=== PATIENT | female | born 1985 | race Two or more races ===

== ENCOUNTER 2021-10-18 09:20 | Outpatient (CLI) | payer OTHER | END 2021-10-18 10:15 | disposition home or self-care (01) | LOC: PRENATAL 09:20 | PROVIDERS: ATTEND Obstetrics & Gynecology Maternal & Fetal Medicine | DX: O34.11 Maternal care for benign tumor of corpus uteri, first trimester (principal); O36.80X1 Pregnancy with inconclusive fetal viability, fetus 1; O09.511 Supervision of elderly primigravida, first trimester; Z36.89 Encounter for other specified antenatal screening; Z3A.14 14 weeks gestation of pregnancy ==

== ENCOUNTER 2021-12-08 08:04 | Outpatient (CLI) | payer OTHER | END 2021-12-08 09:10 | disposition home or self-care (01) | LOC: PRENATAL 08:04 | PROVIDERS: ATTEND Obstetrics & Gynecology Maternal & Fetal Medicine | DX: O35.0XX0 Maternal care for (suspected) central nervous system malformation in fetus, not applicable or unspecified (principal); O35.3XX0 Maternal care for (suspected) damage to fetus from viral disease in mother, not applicable or unspecified; O09.519 Supervision of elderly primigravida, unspecified trimester ==

== ENCOUNTER 2022-01-31 04:52 | Outpatient (CLI) | payer OTHER ==
[2022-01-31] MEDS ORDERED: PRENATAL TABLE1 EAC1 PO (05:08)
[2022-01-31] MEDS ORDERED: CHILDREN'S ASPI81 MG PO (05:08)
[2022-01-31] MEDS ORDERED: TYLENOL EXTRA500 MG PO (05:09)
== END 2022-01-31 13:08 | disposition home or self-care (01) ==
LOC: OBS/DEL 04:52 → PRENATAL 03-03 09:00
PROVIDERS: ATTEND Obstetrics & Gynecology
DX: O26.893 Other specified pregnancy related conditions, third trimester (principal); Z3A.28 28 weeks gestation of pregnancy; R10.11 Right upper quadrant pain

== ENCOUNTER 2022-03-03 09:13 | Outpatient (CLI) | payer OTHER ==
[~2022-03-03 09:13] MED LIST: CHILDREN'S ASPI81 MG PO; PRENATAL TABLE1 EAC1 PO; TYLENOL EXTRA500 MG PO
== END 2022-03-03 10:15 | disposition home or self-care (01) ==
LOC: PRENATAL 09:13
PROVIDERS: ATTEND Obstetrics & Gynecology Maternal & Fetal Medicine
DX: O35.0XX0 Maternal care for (suspected) central nervous system malformation in fetus, not applicable or unspecified (principal); O26.849 Uterine size-date discrepancy, unspecified trimester; O09.519 Supervision of elderly primigravida, unspecified trimester; O34.10 Maternal care for benign tumor of corpus uteri, unspecified trimester; Z3A.32 32 weeks gestation of pregnancy

== ENCOUNTER 2022-04-10 14:00 | Inpatient (IN) | payer OTHER ==
[~2022-04-10] VITALS: Ht 162.6 cm; Wt 83.0 kg
== END 2022-04-15 18:54 | disposition home or self-care (01) | DRG 805 ==
LOC: LDR 04-13 10:12 → OB/GYN 04-14 01:45
PROVIDERS: ADMIT Obstetrics & Gynecology; ATTEND Obstetrics & Gynecology
PROC: 10E0XZZ Delivery of Products of Conception, External Approach (ICD-10-PCS; principal; 2022-04-13)
PROC: 0W8NXZZ Division of Female Perineum, External Approach (ICD-10-PCS; 2022-04-13)
PROC: 4A1HX4Z Monitoring of Products of Conception, Cardiac Electrical Activity, External Approach (ICD-10-PCS; 2022-04-13)
DX: O98.52 Other viral diseases complicating childbirth (principal); U07.1 COVID-19; Z37.0 Single live birth; Z3A.38 38 weeks gestation of pregnancy; Z20.822 Contact with and (suspected) exposure to COVID-19

== ENCOUNTER 2024-09-16 11:34 | Emergency (ER) | payer OTHER ==
[~2024-09-16] VITALS: Ht 162.6 cm; Wt 70.3 kg
[2024-09-16 12:57] VITALS: BP 105/70; O2SAT 100
[2024-09-16 15:22] LABS: HEMATOCRIT 40.7 % (36.0-45.00); HEMOGLOBIN 13.8 g/dL (12.0-15.00); MEAN CELL VOLUME 89.4 fL (80.00-100.00); MEAN CORPUSCULAR HEMOGLOBIN 30.4 pg (27.00-32.0); PLATELET COUNT 195 K/uL (150-450); RED BLOOD COUNT 4.55 M/uL (4.00-6.00); RED CELL DISTRIBUTION WIDTH 13.1 % (11.5-14.5)
[2024-09-16 15:25] LABS: PH,URINE 5.5 (5.0-8.0); URINE APPEARANCE Cloudy; URINE BILIRRUBIN Negative (NEGATIVE); URINE BLOOD Large; URINE COLOR Yellow; URINE GLUCOSE Negative (NEGATIVE); URINE KETONE Negative (NEGATIVE); URINE LEUKOCYTE Moderate; URINE NITRATE Negative; URINE PROTEIN Negative (NEGATIVE)
[2024-09-16 15:29] LABS: CALCIUM 9.1 mg/dL (8.5-10.1); CREATININE SERUM 0.65 mg/dL (0.55-1.02); GFR 102.01; POTASSIUM 3.73 mEq/L (3.5-5.1)
[2024-09-16 15:29] LABS: URINE BACTERIA 3694.3 uL (0.0-1933); URINE RBC 30.9 uL (0.0-20.8); URINE WBC 140.2 uL (0.0-23.2)
[2024-09-16 15:51] LABS: URINE CAST 0.45 uL (0.0-1.40); URINE YEAST FEW /hpf
== END 2024-09-16 17:43 | disposition home or self-care (01) ==
LOC: ER 11:35
PROVIDERS: General Practice
DX: O23.31 Infections of other parts of urinary tract in pregnancy, first trimester (principal); N39.0 Urinary tract infection, site not specified; Z3A.01 Less than 8 weeks gestation of pregnancy

== ENCOUNTER 2024-12-11 18:51 | Emergency (ER) | payer OTHER ==
[~2024-12-11] VITALS: Ht 162.6 cm; Wt 73.0 kg
[2024-12-11 19:13] VITALS: BP 103/71; O2SAT 98
[2024-12-11] MEDS ORDERED: 0.9 % SODIUM CHLORIDE 500 ML IV ONE (20:00)
[2024-12-11 20:11] LABS: HEMATOCRIT 44.1 % (36.0-45.00); MEAN CELL VOLUME 91.2 fL (80.00-100.00); MEAN CORPUSCULAR HEMOGLOBIN 31.1 pg (27.00-32.0); MEAN CORPUSCULAR HGB CONC 34.1 g/dl (32.0-36.0); PLATELET COUNT 204 K/uL (150-450); RED BLOOD COUNT 4.84 M/uL (4.00-6.00); RED CELL DISTRIBUTION WIDTH 14.5 % (11.5-14.5)
[2024-12-11 20:38] LABS: ALBUMIN 3.8 gm/dL (3.4-5.0); BILIRUBIN TOTAL 2.18 mg/dL (0.3-1.2); CALCIUM 8.8 mg/dL (8.5-10.1); CREATININE SERUM 0.67 mg/dL (0.55-1.02); GFR 98.5; GLOBULINA 4.1 G/DL (2.4-3.5); POTASSIUM 3.67 mEq/L (3.5-5.1); TOTAL PROTEIN 7.9 gm/dL (6.4-8.2)
[2024-12-11 22:41] LABS: PH,URINE 5.5 (5.0-8.0); URINE APPEARANCE Clear; URINE BILIRRUBIN Negative (NEGATIVE); URINE BLOOD Negative; URINE COLOR Yellow; URINE GLUCOSE Negative (NEGATIVE); URINE LEUKOCYTE Small; URINE NITRATE Negative; URINE PROTEIN 30 (NEGATIVE); URINE UROBILINOGEN 0.2 E.U./dl
[2024-12-11 22:44] LABS: URINE BACTERIA 1827.2 uL (0.0-1933); URINE EPITHELIAL CELLS 94.5 uL (0.0-38.8); URINE RBC 13.2 uL (0.0-20.8); URINE WBC 92.7 uL (0.0-23.2)
[2024-12-11 22:57] LABS: URINE CAST 0.73 uL (0.0-1.40); URINE KETONE >=160 (NEGATIVE)
[2024-12-11] MEDS ORDERED: INTESTINEX680 M1 PO (23:06)
[2024-12-11] MEDS ORDERED: ONDANSETRON HCL 2 MG/ML VIAL IV ONE (23:15)
[2024-12-11] MEDS ORDERED: FAMOTIDINE/PF 20 MG/2 ML VIAL IV ONE (23:15)
[2024-12-11] MEDS ORDERED: ONDANSETRON HCL 2 MG/ML VIAL ONE (23:16)
[2024-12-11] MEDS ORDERED: FAMOTIDINE/PF 20 MG/2 ML VIAL ONE (23:16)
== END 2024-12-12 00:02 | disposition home or self-care (01) ==
LOC: ER 18:53
PROVIDERS: Preventive Medicine Public Health & General Preventive Medicine
DX: O99.612 Diseases of the digestive system complicating pregnancy, second trimester (principal); B34.9 Viral infection, unspecified; Z20.822 Contact with and (suspected) exposure to COVID-19; Z3A.19 19 weeks gestation of pregnancy
CPT/HCPCS: 36415; 76811; 96365; 96366; 99284; J2405; J3490; J7042

== ENCOUNTER 2025-04-27 14:00 | Inpatient (IN) | payer OTHER ==
[~2025-04-27] VITALS: Ht 162.6 cm; Wt 81.6 kg
[~2025-04-27 14:00] MED LIST changes: +INTESTINEX680 M1 PO
[2025-05-01 17:09] VITALS: BP 115/73
[2025-05-01] MEDS ORDERED: AMPICILLIN SODIUM 2,000 MG VIAL IV STA (17:32)
[2025-05-01] MEDS ORDERED: AMPICILLIN SODIUM 1,000 MG VIAL IV SCH (17:33)
[2025-05-01] MEDS ORDERED: MORPHINE SULFATE 4 MG/ML VIAL IV STA (17:44)
[2025-05-01] MEDS ORDERED: RINGERS SOLUTION,LACTATED 1,000 ML IV SCH (17:45)
[2025-05-01] MEDS ORDERED: OXYTOCIN 500 ML IV ONE (17:45)
[2025-05-01 18:11] LABS: BASO % 0.2 % (0.1-1.2); EOS # 0.04 (0.04-0.54); EOS % 0.4 % (0.7-7.0); LYMPH # 1.19 (1.18-3.74); LYMPH % 13.3 % (19.3-53.1); MEAN PLATELET VOLUME 11.20 fl (9.4-12.4); MONO # 0.54 (0.24-0.82); MONO % 6.0 % (4.7-12.5); NEUT # 7.11 (1.56-6.13); NEUT % 79.3 % (34.0-71.1); RED CELL DISTRIBUTION WIDTH 13.5 % (11.6-14.4)
[2025-05-01 18:32] LABS: INR < 0.93
[2025-05-01] MEDS ORDERED: ACETAMINOPHEN WITH CODEINE 1 UDTAB TABLET PO PRN (21:00)
[2025-05-01] MEDS ORDERED: OXYTOCIN 1,000 ML IV SCH (21:00)
[2025-05-01] MEDS ORDERED: METHYLERGONOVINE MALEATE 0.2 MG/ML AMPUL IM ONE (21:15)
[2025-05-01] MEDS ORDERED: NALOXONE HCL 0.4 MG/ML AMPUL IV ONE (21:15)
[2025-05-01 23:10] VITALS: BP 114/68
[2025-05-02 01:26] VITALS: BP 105/66
[2025-05-02 08:34] VITALS: BP 106/70
[2025-05-02 15:54] VITALS: BP 101/66
[2025-05-02 23:37] VITALS: BP 104/68
[2025-05-03 08:00] VITALS: BP 102/67
== END 2025-05-03 14:44 | disposition home or self-care (01) | DRG 807 ==
LOC: OB/GYN 05-01 17:21 → LDR 05-01 17:21 → OB/GYN 05-01 22:02
PROVIDERS: Obstetrics & Gynecology; ADMIT Obstetrics & Gynecology Maternal & Fetal Medicine; ATTEND Obstetrics & Gynecology Maternal & Fetal Medicine
PROC: 10E0XZZ Delivery of Products of Conception, External Approach (ICD-10-PCS; principal; 2025-05-01)
PROC: 0W8NXZZ Division of Female Perineum, External Approach (ICD-10-PCS; 2025-05-01)
PROC: 4A1HXCZ Monitoring of Products of Conception, Cardiac Rate, External Approach (ICD-10-PCS; 2025-05-01)
DX: O66.0 Obstructed labor due to shoulder dystocia (principal); Z37.0 Single live birth; O36.63X0 Maternal care for excessive fetal growth, third trimester, not applicable or unspecified; Z3A.38 38 weeks gestation of pregnancy

== ENCOUNTER 2025-04-30 11:40 | Outpatient (CLI) | payer OTHER | END 2025-04-30 13:39 | disposition home or self-care (01) | LOC: NST 11:40 | PROVIDERS: ATTEND Obstetrics & Gynecology Gynecology | DX: Z34.83 Encounter for supervision of other normal pregnancy, third trimester (principal) ==